=== PATIENT | male | born 1945 | race Caucasian/White ===

== ENCOUNTER → 2018-09-03 | Outpatient (CLI) | payer MEDICARE ==
[~2018-09-03] MED LIST: CALC1TAB PO; CHOL2000 PO; LOSA1TAB25 PO; LOVA20TA2 PO; MULT-412 PO; NIAC1000 PO; OMNIPAQUE 350 MG/ML, 100ML BOTTLE ONE; RANI150T4 PO; TAMS-11 PO
== END | disposition home or self-care (01) ==
LOC: RAD 12:32
DX: D73.89 Other diseases of spleen (principal); K62.89 Other specified diseases of anus and rectum; C18.9 Malignant neoplasm of colon, unspecified
CPT/HCPCS: 71260; 74177; Q9967

== ENCOUNTER → 2018-09-20 | Outpatient (CLI) | payer MEDICARE ==
[~2018-09-20] MED LIST changes: +ACET325C5 PO; +ENOX40SY4 SQ; -OMNIPAQUE 350 MG/ML, 100ML BOTTLE ONE
== END | disposition home or self-care (01) ==
LOC: STAR 09:19
PROVIDERS: ATTEND Surgery
DX: Z01.818 Encounter for other preprocedural examination (principal)
CPT/HCPCS: 93005

== ENCOUNTER 2018-09-26 11:27 | Inpatient (IN) | payer MEDICARE ==
[~2018-09-26] VITALS: Ht 170.2 cm; Wt 74.0 kg
[~2018-09-26 11:27] MED LIST changes: -ACET325C5 PO; +BUPIVACAINE/PF 0.5% ONE; +CEFOTETAN PMX 2GM/50ML 50 ML ONE; +DEXAMETHASONE 4 MG/ML, 1ML ONE; -ENOX40SY4 SQ; +FENTANYL PF 250 MCG/5ML ONE; +GLYCOPYRROLATE 0.4 MG/2 ML, 2ML ONE; +LIDOCAINE 2% 100MG/5ML SYRINGE ONE; +MIDAZOLAM 1 MG/ML, 2ML ONE; +NEOSTIGMINE 1 MG/ML, 10ML ONE; +ONDANSETRON 2MG/ML, 2ML ONE; +PHENYLEPHRINE 10 MG/ML ONE; +PROPOFOL 10 MG/ML, 20ML ONE; +ROCURONIUM 10MG/ML,5ML ONE
[2018-09-26] MEDS ORDERED: LACTATED RINGERS 1,000 ML IV SCH (12:12)
[2018-09-26] MEDS ORDERED: ACETAMINOPHEN 500 MG TABLET PO ONE (12:30)
[2018-09-26] MEDS ORDERED: GABAPENTIN 300 MG CAPSULE PO ONE (12:30)
[2018-09-26] MEDS ORDERED: SCOPOLAMINE PATCH, 1.5MG PATCH.TD72 TD ONE (12:30)
[2018-09-26] MEDS ORDERED: PROPOFOL 10 MG/ML, 20ML ONE (14:29)
[2018-09-26] MEDS ORDERED: BUPIVACAINE/PF 0.5% ONE (14:29)
[2018-09-26] MEDS ORDERED: LIDOCAINE-MPF 2% ,5ML ONE (14:29)
[2018-09-26] MEDS ORDERED: hydrALAzine 20 MG/ML, 1ML IV PRN (18:00)
[2018-09-26] MEDS ORDERED: PROMETHAZINE 25 MG/ML, 1ML IV PRN (18:00)
[2018-09-26] MEDS ORDERED: HALOPERIDOL 5 MG/ML IV PRN (18:00)
[2018-09-26] MEDS ORDERED: LABETALOL 5MG/ML, 20ML IV PRN (18:00)
[2018-09-26] MEDS ORDERED: MEPERIDINE/PF 25MG/0.5ML IVPush PRN (18:00)
[2018-09-26] MEDS ORDERED: HYDROmorphone 1 MG/ML, 1ML IV PRN (18:00)
[2018-09-26] MEDS ORDERED: OXYcodone 5 MG/5 ML ORAL.SOL UDC PO PRN (18:00)
[2018-09-26] MEDS ORDERED: FENTANYL PF 100 MCG/2ML IV PRN (18:00)
[2018-09-26] MEDS ORDERED: OXYcodone 5 MG/5 ML ORAL.SOL UDC ONE (18:37)
[2018-09-26] MEDS ORDERED: FENTANYL PF 100 MCG/2ML ONE (18:37)
[2018-09-26 19:30] VITALS: BP 100/62
[2018-09-26] MEDS ORDERED: DIPHENHYDRAMINE 50 MG/ML, 1ML IVPush PRN (21:00)
[2018-09-26] MEDS ORDERED: LORazepam 2 MG/ML, 1ML IVPush PRN (21:00)
[2018-09-26] MEDS ORDERED: ONDANSETRON 2MG/ML, 2ML IV PRN (21:00)
[2018-09-26] MEDS ORDERED: CALCIUM CARBONATE 500 MG TAB.CHEW PO PRN (21:00)
[2018-09-26] MEDS ORDERED: SCOPOLAMINE PATCH, 1.5MG PATCH.TD72 TD PRN (21:00)
[2018-09-26] MEDS: ACETAMINOPHEN 100 ML IV SCH (21:00)
[2018-09-26] MEDS ORDERED: DEXAMETHASONE 4 MG/ML, 1ML IVPush PRN (21:00)
[2018-09-26] MEDS ORDERED: HALOPERIDOL 5 MG/ML IVPush PRN (21:00)
[2018-09-26] MEDS ORDERED: LORazepam 1MG TABLET PO PRN (21:00)
[2018-09-26] MEDS ORDERED: OXYcodone IR 5MG TABLET PO PRN (21:00)
[2018-09-26] MEDS ORDERED: HYDROmorphone 1 MG/ML, 1ML IVPush PRN (21:00)
[2018-09-26] MEDS: FAMOTIDINE 20 MG TABLET PO SCH (21:50)
[2018-09-26] MEDS: ACETAMINOPHEN 500 MG TABLET PO SCH (21:50)
[2018-09-26] MEDS: IBUPROFEN 800 MG TABLET PO SCH (21:50)
[2018-09-26] MEDS: D5%-0.45NACL+KCL 20MEQ 1,000 ML IV SCH (23:09)
[2018-09-27 00:30] VITALS: BP 94/54
[2018-09-27] MEDS: ACETAMINOPHEN 100 ML IV SCH ×3 (02:27→15:00)
[2018-09-27] MEDS: ACETAMINOPHEN 500 MG TABLET PO SCH ×4 (04:07→21:08)
[2018-09-27 04:46] VITALS: BP 110/62
[2018-09-27 07:11] VITALS: BP 92/56
[2018-09-27 08:57] LABS: BASOPHILS # (AUTO) 0.03 x10^3/uL (0-0.1); BASOPHILS % (AUTO) 0 % (0-1); EOSINOPHILS % (AUTO) 0 % (1-7); LYMPHOCYTES # (AUTO) 0.65 x10^3/uL (1-3.4); LYMPHOCYTES % (AUTO) 4 % (22-44); MD NO; MEAN CORPUSCULAR HEMOGLOBIN 32.1 pg (27.5-34.5); MEAN CORPUSCULAR HGB CONC 34.4 g/dL (33.2-36.2); MEAN CORPUSCULAR VOLUME 93.4 fL (81-97); MEAN PLATELET VOLUME 7.8 fL (7.4-10.4); MONOCYTES # (AUTO) 0.57 x10^3/uL (0.2-0.8); MONOCYTES % (AUTO) 4 % (2-9); NEUTROPHILS # (AUTO) 13.48 x10^3/uL (1.8-6.8); NEUTROPHILS % (AUTO) 92 % (42-75); PLATELET COUNT 206 x10^3/uL (130-400); RED BLOOD COUNT 4.23 x10^6/uL (4.38-5.82); RED CELL DISTRIBUTION WIDTH 13.3 % (9.4-14.8)
[2018-09-27 09:06] LABS: ALBUMIN 3.4 g/dL (3.4-5.0); ANION GAP 11 mmol/L (5-15); CALCIUM 8.3 mg/dL (8.5-10.1); CHLORIDE 105 mmol/L (98-107); CREATININE 2.36 mg/dL (0.7-1.3)
[2018-09-27] MEDS: TAMSULOSIN 0.4 MG CAP.ER.24H PO SCH (09:24)
[2018-09-27] MEDS: LOVASTATIN 20 MG TABLET PO SCH (09:24)
[2018-09-27] MEDS: IBUPROFEN 800 MG TABLET PO SCH ×3 (09:24→21:08)
[2018-09-27] MEDS: D5%-0.45NACL+KCL 20MEQ 1,000 ML IV SCH (12:39)
[2018-09-27 15:09] VITALS: BP 94/56
[2018-09-27] MEDS ORDERED: ENOXAPARIN 40 MG/0.4 ML SQ SCH (16:00)
[2018-09-27 19:16] VITALS: BP 103/64
[2018-09-27] MEDS: FAMOTIDINE 20 MG TABLET PO SCH (21:08)
[2018-09-28 02:35] VITALS: BP 93/52
[2018-09-28] MEDS: ACETAMINOPHEN 500 MG TABLET PO SCH ×4 (04:16→21:27)
[2018-09-28 05:18] LABS: BASOPHILS # (AUTO) 0.02 x10^3/uL (0-0.1); BASOPHILS % (AUTO) 0 % (0-1); EOSINOPHILS # (AUTO) 0.08 x10^3/uL (0-0.4); EOSINOPHILS % (AUTO) 1 % (1-7); LYMPHOCYTES # (AUTO) 1.36 x10^3/uL (1-3.4); LYMPHOCYTES % (AUTO) 13 % (22-44); MD NO; MEAN CORPUSCULAR HEMOGLOBIN 31.9 pg (27.5-34.5); MEAN CORPUSCULAR VOLUME 93.8 fL (81-97); MEAN PLATELET VOLUME 8.2 fL (7.4-10.4); MONOCYTES # (AUTO) 0.74 x10^3/uL (0.2-0.8); MONOCYTES % (AUTO) 7 % (2-9); NEUTROPHILS # (AUTO) 8.56 x10^3/uL (1.8-6.8); NEUTROPHILS % (AUTO) 80 % (42-75); PLATELET COUNT 178 x10^3/uL (130-400); RED BLOOD COUNT 3.84 x10^6/uL (4.38-5.82); RED CELL DISTRIBUTION WIDTH 13.6 % (9.4-14.8)
[2018-09-28 05:19] LABS: ALBUMIN 3.2 g/dL (3.4-5.0); ANION GAP 6 mmol/L (5-15); CALCIUM 8.1 mg/dL (8.5-10.1); CHLORIDE 109 mmol/L (98-107)
[2018-09-28 05:21] LABS: CREATININE 2.12 mg/dL (0.7-1.3)
[2018-09-28 05:28] LABS: CREATININE 2.12 mg/dL (0.7-1.3)
[2018-09-28] MEDS ORDERED: SODIUM CHLORIDE 0.9% 1,000 ML IV SCH ×2 (06:30→08:00)
[2018-09-28 07:36] VITALS: BP 117/68
[2018-09-28] MEDS: TAMSULOSIN 0.4 MG CAP.ER.24H PO SCH (08:35)
[2018-09-28] MEDS: LOVASTATIN 20 MG TABLET PO SCH (08:35)
[2018-09-28] MEDS: IBUPROFEN 800 MG TABLET PO SCH ×3 (08:35→21:27)
[2018-09-28] MEDS: HEPARIN 5,000 UNITS/ML, 1ML SQ SCH ×2 (08:41→18:08)
[2018-09-28 15:08] VITALS: BP 128/67
[2018-09-28 19:29] VITALS: BP 135/65
[2018-09-28] MEDS: FAMOTIDINE 20 MG TABLET PO SCH (21:27)
[2018-09-29] MEDS: HEPARIN 5,000 UNITS/ML, 1ML SQ SCH ×2 (00:16→08:47)
[2018-09-29 02:47] VITALS: BP 115/67
[2018-09-29] MEDS: ACETAMINOPHEN 500 MG TABLET PO SCH ×2 (03:44→10:12)
[2018-09-29 07:39] VITALS: BP 119/63
[2018-09-29] MEDS: IBUPROFEN 800 MG TABLET PO SCH (08:47)
[2018-09-29] MEDS: LOVASTATIN 20 MG TABLET PO SCH (08:47)
[2018-09-29] MEDS: TAMSULOSIN 0.4 MG CAP.ER.24H PO SCH (08:47)
[2018-09-29 10:00] LABS: BASOPHILS # (AUTO) 0.02 x10^3/uL (0-0.1); BASOPHILS % (AUTO) 0 % (0-1); EOSINOPHILS # (AUTO) 0.08 x10^3/uL (0-0.4); EOSINOPHILS % (AUTO) 1 % (1-7); LYMPHOCYTES % (AUTO) 11 % (22-44); MD NO; MEAN CORPUSCULAR HEMOGLOBIN 32.3 pg (27.5-34.5); MEAN CORPUSCULAR HGB CONC 34.2 g/dL (33.2-36.2); MEAN CORPUSCULAR VOLUME 94.5 fL (81-97); MEAN PLATELET VOLUME 8.1 fL (7.4-10.4); MONOCYTES # (AUTO) 0.49 x10^3/uL (0.2-0.8); MONOCYTES % (AUTO) 7 % (2-9); NEUTROPHILS # (AUTO) 5.95 x10^3/uL (1.8-6.8); NEUTROPHILS % (AUTO) 81 % (42-75); PLATELET COUNT 201 x10^3/uL (130-400); RED BLOOD COUNT 4.01 x10^6/uL (4.38-5.82)
[2018-09-29 10:05] LABS: ALBUMIN 3.3 g/dL (3.4-5.0); ANION GAP 7 mmol/L (5-15); CALCIUM 8.6 mg/dL (8.5-10.1); CHLORIDE 110 mmol/L (98-107)
[2018-09-29 10:12] LABS: CREATININE 1.58 mg/dL (0.7-1.3)
[2018-09-29] MEDS ORDERED: ENOX40SY4 SQ (11:47)
[2018-09-29] MEDS ORDERED: ACET325C5 PO (12:38)
== END 2018-09-29 13:40 | disposition home or self-care (01) | DRG 329 ==
LOC: ORIP 11:27 → 4NOR 19:56
PROVIDERS: ADMIT Surgery; ATTEND Surgery
PROC: 0DBP4ZZ Excision of Rectum, Percutaneous Endoscopic Approach (ICD-10-PCS; principal; 2018-09-28)
PROC: 8E0W4CZ Robotic Assisted Procedure of Trunk Region, Percutaneous Endoscopic Approach (ICD-10-PCS; 2018-09-28)
PROC: 0DBN4ZZ Excision of Sigmoid Colon, Percutaneous Endoscopic Approach (ICD-10-PCS; 2018-09-28)
DX: C18.9 Malignant neoplasm of colon, unspecified (principal); N17.0 Acute kidney failure with tubular necrosis; M19.90 Unspecified osteoarthritis, unspecified site; I10 Essential (primary) hypertension; K21.9 Gastro-esophageal reflux disease without esophagitis; E78.00 Pure hypercholesterolemia, unspecified; M81.0 Age-related osteoporosis without current pathological fracture; D49.0 Neoplasm of unspecified behavior of digestive system; Z87.442 Personal history of urinary calculi; Z85.528 Personal history of other malignant neoplasm of kidney; Z80.0 Family history of malignant neoplasm of digestive organs; Z83.3 Family history of diabetes mellitus; Z82.49 Family history of ischemic heart disease and other diseases of the circulatory system; R33.9 Retention of urine, unspecified
CPT/HCPCS: 36415; 80048; 82040; 82565; 85025; 86140; 86850; 86900; 88309; G0378; J1100; J1644; J1650; J2250; J2405; J2704; J2710; J3010; J3490; J2370; J3480; J7030; J7120

== ENCOUNTER 2018-10-04 08:18 | Emergency (ER) | payer MEDICARE ==
[~2018-10-04] VITALS: Ht 170.2 cm; Wt 79.3 kg
[~2018-10-04 08:18] MED LIST changes: +ACET325C5 PO; -BUPIVACAINE/PF 0.5% ONE; -CEFOTETAN PMX 2GM/50ML 50 ML ONE; -DEXAMETHASONE 4 MG/ML, 1ML ONE; +ENOX40SY4 SQ; -FENTANYL PF 250 MCG/5ML ONE; -GLYCOPYRROLATE 0.4 MG/2 ML, 2ML ONE; -LIDOCAINE 2% 100MG/5ML SYRINGE ONE; -MIDAZOLAM 1 MG/ML, 2ML ONE; -NEOSTIGMINE 1 MG/ML, 10ML ONE; -ONDANSETRON 2MG/ML, 2ML ONE; -PHENYLEPHRINE 10 MG/ML ONE; -PROPOFOL 10 MG/ML, 20ML ONE; -ROCURONIUM 10MG/ML,5ML ONE
[2018-10-04 08:24] VITALS: BP 136/68
[2018-10-04] MEDS ORDERED: LIDOCAINE 2%,20 ML JEL.PF.APP MM ONE (08:38)
== END 2018-10-04 09:41 | disposition home or self-care (01) ==
LOC: ED 09:35
DX: R33.9 Retention of urine, unspecified (principal); Z85.038 Personal history of other malignant neoplasm of large intestine
CPT/HCPCS: 51702; 99284

== ENCOUNTER → 2019-05-06 | Outpatient (CLI) | payer MEDICARE ==
[~2019-05-06] MED LIST changes: +OMNIPAQUE 350 MG/ML, 100ML BOTTLE ONE
== END | disposition home or self-care (01) ==
LOC: RAD 09:30
PROVIDERS: ATTEND Internal Medicine Hematology & Oncology
DX: C18.7 Malignant neoplasm of sigmoid colon (principal); D49.0 Neoplasm of unspecified behavior of digestive system; N40.0 Benign prostatic hyperplasia without lower urinary tract symptoms; Z98.890 Other specified postprocedural states
CPT/HCPCS: 71260; 74177; Q9967

== ENCOUNTER → 2019-11-14 | Outpatient (CLI) | payer MEDICARE ==
[~2019-11-14] MED LIST changes: -ACET325C5 PO; +ACET325C6 PO; -OMNIPAQUE 350 MG/ML, 100ML BOTTLE ONE
== END | disposition home or self-care (01) ==
LOC: CFH 09:59
PROVIDERS: ATTEND Internal Medicine Hematology & Oncology
DX: C18.7 Malignant neoplasm of sigmoid colon (principal); N20.0 Calculus of kidney; K44.9 Diaphragmatic hernia without obstruction or gangrene; K42.9 Umbilical hernia without obstruction or gangrene; R59.9 Enlarged lymph nodes, unspecified; R16.1 Splenomegaly, not elsewhere classified; M48.54XA Collapsed vertebra, not elsewhere classified, thoracic region, initial encounter for fracture; Z90.49 Acquired absence of other specified parts of digestive tract
CPT/HCPCS: 71250; 74176

== ENCOUNTER 2020-04-13 09:52 | Outpatient (CLI) | payer MEDICARE | END 2020-04-13 23:59 | disposition home or self-care (01) | LOC: CFH 09:52 | PROVIDERS: ATTEND Internal Medicine Hematology & Oncology | DX: C18.7 Malignant neoplasm of sigmoid colon (principal); M48.54XA Collapsed vertebra, not elsewhere classified, thoracic region, initial encounter for fracture; M51.34 Other intervertebral disc degeneration, thoracic region | CPT/HCPCS: 71250; 74176 ==